=== PATIENT | female | born 1975 ===

== ENCOUNTER 2023-05-30 10:13 | Outpatient (REF) | payer OTHER, SELFPAY ==
--- NOTE | ~2023-05-30 | XR_ITS ---
EXAMINATION: XR KNEE, LEFT CLINICAL INFORMATION: Pain in left knee COMPARISON: Same-day right knee TECHNIQUE: 3 views of the left knee. FINDINGS: No fracture or joint effusion. Alignment is anatomic. Joint spaces are maintained. Small marginal osteophyte extends off the patella. No abnormal soft tissue calcification. XR/XR knee LT 3V IMPRESSION: No acute bony abnormality.
--- NOTE | ~2023-05-30 | XR_ITS ---
EXAMINATION: XR KNEE, RIGHT CLINICAL INFORMATION: Pain in right knee COMPARISON: Same-day left knee TECHNIQUE: 3 views of the right knee. FINDINGS: Small joint effusion. No fracture. Alignment is anatomic. Joint spaces are maintained. On the lateral view, there is question of calcific density projected over the joint space raising concern regarding a loose body within the joint. Quadriceps enthesophyte is noted. XR/XR knee RT 3V IMPRESSION: Question of calcific density projected over the joint space on the lateral view raising concern regarding a loose body within the joint.
== END 2023-05-30 10:14 | disposition home or self-care (01) ==
LOC: HO.HOSX 10:13
PROVIDERS: Visit Provider Orthopaedic Surgery
DX: S83.242A Other tear of medial meniscus, current injury, left knee, initial encounter (principal); M25.561 Pain in right knee
CPT/HCPCS: 73562; 99202

== ENCOUNTER 2023-05-30 12:14 | Outpatient (AMB) | payer OTHER, SELFPAY ==
--- NOTE | 2023-05-30 12:31 | MHC.OFFVIS ---
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 The patient describes her left knee pain as sharp and severe in nature. She did injure her left knee several years ago. She twisted her knee and had acute onset of pain. Since that time her symptoms have gotten worse in spite of continued non operative treatments. She has done physical therapy for 12 weeks over the last 6 months which aggravated her pain. She has also tried Tylenol, Advil and Aleve which gave her minimal relief. She has had injections in the past which gave her only mild relief. The patient states that her left knee will give out several times per day. Allergies No Known Allergies Allergy (Unverified 07/01/20 16:18) Medication List - Last Reconciled 05/30/23 by Demetri Ornelas MD albuterol sulfate mg inhalation clonazepam 1 mg PO BEDTIME PRN montelukast 10 mg PO DAILY omeprazole 40 mg PO DAILY sumatriptan succinate mg PO zolpidem 10 mg PO BEDTIME [facility]N [facility] Surgical History (Updated 05/30/23 @ 12:40 by Irina Mantilla CMA) History of hand surgery Social History (Updated 05/30/23 @ 12:40 by Irina Mantilla CMA) Patient Tobacco Use Status: Former Tobacco user Cigarettes Per Day: 1 Current occupational status: employed Physical Exam Vital Signs: BMI result Body Mass Index 33.9 Const Other: Well-nourished well-developed very friendly female awake alert and oriented x3 in no acute distress Extrem Other: Bilateral lower extremity examination shows good capillary refill, no skin lesions noted, normal sensation light touch Bilateral knee examination shows a minimal effusion, minimal crepitus with range of motion, tenderness along her medial joint line, positive Lavonne's test, no instability Results Reviewed Results Reviewed: X-rays of the patient's bilateral knee show mild diffuse joint space narrowing, no acute bony abnormalities Assessment & Plan Assessment & Plan (1) Tear of medial meniscus of left knee: Code(s): S83.242A - Other tear of medial meniscus, current injury, left knee, initial encounter Plan Ms. Chinchilla presents with progressively worsening bilateral knee pains and mechanical symptoms, left greater than right, most likely due to medial meniscus tearing. Thus, I will send the patient for an MRI of her left knee for further evaluation. I will see her back once the MRI is completed to discuss the findings and treatment options. Feel free to call me at any time should questions regarding her orthopedic management arise. Thank you very much for asking me to see this very friendly patient. I spent 22 minutes in reviewing the patient's records and imaging studies, seeing the patient and documenting in the medical record. Orders: Orders XR knee LT 3V Today M25.562 - Pain in left knee XR knee RT 3V Today M25.561 - Pain in right knee MR knee LT wo con Today S83.242A - Other tear of medial meniscus, current injury, left knee, initial encounter Medications: New meloxicam 15 mg PO DAILY 30 tabs 2RF Coding Level of Care Code New Pt Level 2 (03633) Diagnoses Tear of medial meniscus of left knee S83.242A
[2023-05-30 12:38] VITALS: BMI 33.9
== END 2023-05-30 13:11 | disposition home or self-care (01) ==
PROVIDERS: PCP Internal Medicine; Visit Provider Orthopaedic Surgery
DX: S83.242A Other tear of medial meniscus, current injury, left knee, initial encounter (principal)
CPT/HCPCS: 99202

== ENCOUNTER 2023-07-11 14:26 | Outpatient (REF) | payer OTHER, SELFPAY | END 2023-07-11 14:27 | disposition home or self-care (01) | LOC: HO.HOSX 14:26 | PROVIDERS: Visit Provider Orthopaedic Surgery | DX: Z13.89 Encounter for screening for other disorder (principal) ==

== ENCOUNTER 2023-08-21 11:28 | Outpatient (REF) | payer OTHER, SELFPAY ==
--- NOTE | ~2023-08-21 | MR_ITS ---
EXAMINATION: MR KNEE WITHOUT CONTRAST, LEFT CLINICAL INFORMATION: Left knee injury and worsening pain COMPARISON: None available. TECHNIQUE: MRI of the knee without contrast was performed using routine sequences on a high-field scanner. FINDINGS: MENISCUS: The Left medial meniscus is intact. The lateral meniscus is intact. CARTILAGE: Articular cartilage of the femoral condyles and tibial plateaus are intact. LIGAMENTS: The anterior and posterior cruciate ligaments are intact. Tibial and fibular collateral ligaments, iliotibial band, biceps femoris tendon attachment are intact. PATELLA: The Left patellar tendon and patellar articular cartilage are intact. There is mild left knee effusion. BONES: No focal bone lesions with abnormal signal can be seen. MR/MR knee LT wo con IMPRESSION: 1. Mild left knee effusion is present. Otherwise Normal MRI scan of the Left knee. 2. No meniscal tear is seen.
== END 2023-08-21 11:29 | disposition home or self-care (01) ==
LOC: HO.MRI 11:28
PROVIDERS: PCP Internal Medicine; Visit Provider Orthopaedic Surgery
DX: S83.242A Other tear of medial meniscus, current injury, left knee, initial encounter (principal)
CPT/HCPCS: 73721

== ENCOUNTER 2023-12-12 14:01 | Outpatient (AMB) | payer OTHER, SELFPAY ==
--- NOTE | 2023-12-12 14:03 | A.OFFVIS_ITS ---
Intake Intake Visit Reasons: Left knee MRI review Intake Note: Renae is a 48 year old female who presents for a MRI review of her Left knee. Patient reports she is still having a lot pain. She has had cortisone injections in the past which gave her minimal relief. She has also tried Ty lenol and anti-inflammatory medicines which gave her only mild relief. She has done physical therapy exercises which aggravated her pain. She would like to hold off on surgery if at all possible. Allergies No Known Allergies Allergy (Unverified 12/12/23 14:04) Medication List - Last Reconciled 12/12/23 by Demetri Ornelas MD albuterol sulfate mg inhalation clonazepam 1 mg PO BEDTIME PRN meloxicam 15 mg PO DAILY montelukast 10 mg PO DAILY omeprazole 40 mg PO DAILY sumatriptan succinate mg PO tramadol 50 mg PO Q12H PRN zolpidem 10 mg PO BEDTIME PRN PFSH Surgical History History of hand surgery Social History Patient Tobacco Use Status: Former Tobacco user Cigarettes Per Day: 1 Current occupational status: employed Physical Exam Const Other: Well-nourished well-developed very friendly female awake alert and oriented x3 in no acute distress Extrem Other: Bilateral lower extremity examination shows good capillary refill, no skin lesions noted, normal sensation light touch Left knee examination shows a minimal effusion, mild crepitus with range of motion, no joint line tenderness, negative Lavonne's test Results Reviewed Results Reviewed: MRI of the patient's left knee shows mild diffuse degenerative changes, no acute bony abnormalities Assessment & Plan Assessment & Plan (1) Left knee pain: Code(s): M25.562 - Pain in left knee Plan Ms. Chinchilla presents with left knee pain due to early degenerative joint disease. I had a lengthy discussion with the patient regarding the treatment options. She wishes to hold off on surgery for as long as possible. I agree with this plan. She has had cortisone injections in the past which gave her minimal relief. Thus, I will see whether not the patient's insurance company will cover a viscosupplementation injection. I will see her back once the injection is available. Feel free to call me at any time should questions regarding her orthopedic management arise. I spent 22 minutes in reviewing the patient's records and imaging studies, seeing the patient and documenting in the medical record. Coding Level of Care Code Est Pt Level 2 (03369) Diagnoses Left knee pain M25.562
== END 2023-12-12 15:11 | disposition home or self-care (01) ==
PROVIDERS: PCP Internal Medicine; Visit Provider Orthopaedic Surgery
DX: M17.12 Unilateral primary osteoarthritis, left knee (principal)
CPT/HCPCS: 99213

== ENCOUNTER → 2023-12-12 14:01 | Outpatient (BNVA) | payer OTHER, SELFPAY | PROVIDERS: PCP Internal Medicine; Visit Provider Orthopaedic Surgery | DX: M25.562 Pain in left knee (principal) | CPT/HCPCS: 99212 ==

== ENCOUNTER 2024-01-01 15:16 | Outpatient (REF) | payer OTHER, SELFPAY | END 2024-01-01 15:17 | disposition home or self-care (01) | LOC: HO.HOSX 15:16 | PROVIDERS: Visit Provider Orthopaedic Surgery | DX: Z13.89 Encounter for screening for other disorder (principal) ==

== ENCOUNTER 2024-01-02 07:09 | Outpatient (REF) | payer OTHER, SELFPAY ==
--- NOTE | ~2024-01-02 | XR_ITS ---
EXAMINATION: XR SHOULDER, RIGHT CLINICAL INFORMATION: Pain right shoulder COMPARISON: None available. TECHNIQUE: AP external rotation, Grashey, scapular Y, and axillary views of the right shoulder. FINDINGS: The bones and soft tissues are normal. No fracture. Glenohumeral and acromioclavicular alignment is anatomic with normal joint space. No abnormal soft tissue calcifications. XR/XR shoulder RT min 2V IMPRESSION: Normal right shoulder.
== END 2024-01-02 07:10 | disposition home or self-care (01) ==
LOC: HO.HOSX 07:09
PROVIDERS: Visit Provider Orthopaedic Surgery
DX: M25.511 Pain in right shoulder (principal); M54.2 Cervicalgia
CPT/HCPCS: 73030; 99212

== ENCOUNTER 2024-01-02 13:29 | Outpatient (AMB) | payer OTHER, SELFPAY ==
[2024-01-02 13:39] VITALS: BMI 33.9
--- NOTE | 2024-01-02 13:39 | A.OFFVIS_ITS ---
Intake Vital Signs 01/02/24 13:39 Height 5 ft 6 in Weight 210 lb BMI 33.9 Intake Visit Reasons: OV- Lt Knee pain, RT Shoulder eval, Neck pain Intake Note: Renae is a 48 year old female who presents with complaints of progressively worsening neck pain which radiates down to her right hand as well as intermittent pain in her left knee and right shoulder. The patient states that her neck pain is sharp and severe in nature. She has tried Tylenol and anti- inflammatory medicines which gave her minimal relief. She has also tried tramadol which gives her mild relief. The patient has weakness when lifting her right hand above shoulder height. The patient states that she had an EMG of both of her upper extremities which were normal several years ago. The patient has had injections given into her left knee. She states that the injections were done under sedation due to her anxiety. Allergies No Known Allergies Allergy (Verified 01/02/24 13:45) Medication List - Last Reconciled 01/02/24 by Demetri Ornelas MD albuterol sulfate mg inhalation clonazepam 1 mg PO BEDTIME PRN meloxicam 15 mg PO DAILY montelukast 10 mg PO DAILY omeprazole 40 mg PO DAILY sumatriptan succinate mg PO tramadol 50 mg PO Q12H PRN zolpidem 10 mg PO BEDTIME PRN PFSH Surgical History History of hand surgery Social History (Updated 01/02/24 @ 13:45 by Gabriela Coelho CMA) Patient Tobacco Use Status: Former Tobacco user Cigarettes Per Day: 1 Current occupational status: employed Current occupation: Right hand dominate Physical Exam Vital Signs: BMI result Body Mass Index 33.9 Const Other: Well-nourished well-developed very friendly female awake alert and oriented x3 in no acute distress Neck Other: Cervical spine examination shows right-sided paraspinal muscle tenderness, pain with range of motion, positive Spurling's test, 3/5 strength with testing of her right biceps and wrist extensors when compared to 5/5 strength on her left side Extrem Other: Left knee examination shows a minimal effusion, mild crepitus with range of motion, no instability Right shoulder examination shows decreased range of motion when compared to her left shoulder, positive impingement signs, mild tenderness over her acromioclavicular joint Results Reviewed Results Reviewed: MRI of the patient's left knee shows mild diffuse degenerative changes, no meniscus tearing X-rays of the patient's right shoulder show moderate acromioclavicular joint narrowing, a type 2 acromion, no acute bony abnormalities Assessment & Plan Assessment & Plan (1) Neck pain on right side: Code(s): M54.2 - Cervicalgia Plan Ms. Chinchilla presents with progressively worsening neck pain which radiates down to her right hand as well as associated right arm weakness possibly due to cervical stenosis or a disc herniation. Thus, I will arrange for her to have an MRI of her cervical spine for further evaluation. I will see her back once the MRI is completed to discuss the findings and treatment options. The patient may also be a candidate for left knee viscosupplementation injections or further cortisone injections. She states that these injections have been done under sedation in the past. Thus, I will arrange for the patient to have a consultation with Dr. Joaquin to get his opinion regarding her neck and shoulder and knee symptoms as well as possible injections under sedation. Feel free to call me at any time should questions regarding her orthopedic management arise. I spent 22 minutes in reviewing the patient's records and imaging studies, seeing the patient and documenting in the medical record. Orders: Orders MR cervical spine wo con Today M54.2 - Cervicalgia XR shoulder RT min 2V Today M25.511 - Pain in right shoulder Referrals Pain Management Referral M54.2 - Cervicalgia Coding Level of Care Code Est Pt Level 2 (17561) Diagnoses Neck pain on right side M54.2
== END 2024-01-02 13:55 | disposition home or self-care (01) ==
PROVIDERS: PCP Internal Medicine; Visit Provider Orthopaedic Surgery
DX: M54.2 Cervicalgia (principal)
CPT/HCPCS: 99213

== ENCOUNTER 2024-04-03 09:29 | Outpatient (AMB) | payer OTHER, SELFPAY ==
--- NOTE | 2024-04-03 09:33 | MHC.OFFVIS ---
Vital Signs 04/03/24 09:44 Height 5 ft 6 in Weight 210 lb BMI 33.9 Handedness Right Intake Visit Reasons: OV - Right Shoulder / neck pain Intake Note: Renae is a 48 year old female who presents with complaints of progressively worsening neck pain which radiates down to her right hand as well as intermittent pain in her left knee and right shoulder. The patient states that her neck pain is sharp and severe in nature. She has tried Tylenol and anti-inflammatory medicines which gave her minimal relief. She has also tried tramadol which gives her mild relief. The patient has weakness when lifting her right hand above shoulder height. The patient states that she had an EMG of both of her upper extremities which were normal several years ago. The patient has had injections given into her left knee. She states that the injections were done under sedation due to her anxiety. The patient states that she did have an MRI of her cervical spine scheduled but she was not able to get transportation. Allergies No Known Allergies Allergy (Verified 04/03/24 09:46) [facility] Surgical History History of hand surgery Social History Patient Tobacco Use Status: Former Tobacco user Cigarettes Per Day: 1 Current occupational status: employed Current occupation: Right hand dominate Physical Exam Vital Signs: BMI result Body Mass Index 33.9 Const Other: Well-nourished well-developed very friendly female awake alert and oriented x3 in no acute distress Neck Other: Cervical spine examination shows pain with range of motion, tenderness along her right-sided paraspinal muscles, positive Spurling's test 4/5 strength with testing of her right biceps and wrist extensors when compared to 5/5 strength on her left side Results Reviewed Results Reviewed: X-rays of the patient's cervical spine taken today show diffuse moderate degenerative disc disease, no acute bony abnormalities Assessment & Plan Assessment & Plan (1) Neck pain on right side: Code(s): M54.2 - Cervicalgia Category: Medical Plan Ms. Chinchilla presents with progressively worsening cervical spine pain which radiates into her right arm as well as associated right arm weakness most likely due to cervical stenosis or a disc herniation. Thus, I did reorder her cervical spine MRI. I will contact her by phone once the MRI results are available. She will call me prior to that time should her symptoms worsen in any way. Feel free to call me at any time should questions regarding her orthopedic management arise. I spent 22 minutes in reviewing the patient's records and imaging studies, seeing the patient and documenting in the medical record. Orders: Orders XR cervical spine 2V Today M54.2 - Cervicalgia MR cervical spine wo con Today M54.2 - Cervicalgia Coding Level of Care Code Est Pt Level 3 (42801) Diagnoses Neck pain on right side M54.2
[2024-04-03 09:44] VITALS: BMI 33.9
== END 2024-04-03 09:56 | disposition home or self-care (01) ==
PROVIDERS: PCP Internal Medicine; Visit Provider Orthopaedic Surgery
DX: M54.2 Cervicalgia (principal); M25.511 Pain in right shoulder; M25.562 Pain in left knee
CPT/HCPCS: 99213

== ENCOUNTER 2024-04-03 12:06 | Outpatient (REF) | payer OTHER, SELFPAY ==
--- NOTE | ~2024-04-03 | XR_ITS ---
EXAMINATION: XR CERVICAL SPINE CLINICAL INFORMATION: Neck pain. COMPARISON: None available. TECHNIQUE: 4 views of the cervical spine. FINDINGS: Straightening of the normal cervical lordosis. Degenerative changes between the anterior arch of C1 and the odontoid. Limited visualization of C6 and C7 due to overlying soft tissues. Moderate multilevel cervical spondylosis with multilevel hypertrophic change and loss of disc space height at C5-C6 and C6-C7. XR/XR cervical spine 2V IMPRESSION: Moderate multilevel cervical spondylosis most notable at C5-C6 and C6-C7.
== END 2024-04-03 12:07 | disposition home or self-care (01) ==
LOC: HO.HOSX 12:06
PROVIDERS: Visit Provider Orthopaedic Surgery
DX: M54.2 Cervicalgia (principal); M25.511 Pain in right shoulder
CPT/HCPCS: 72040; 99212

== ENCOUNTER 2024-04-11 10:55 | Outpatient (AMB) | payer OTHER, SELFPAY ==
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
[2024-04-11 11:03] VITALS: BP 157/82; PULSE 78; O2SAT 97; BMI 33.9
== END 2024-04-11 11:38 | disposition home or self-care (01) ==
PROVIDERS: PCP Internal Medicine; Visit Provider Nurse Practitioner Family
DX: M62.838 Other muscle spasm (principal); M25.511 Pain in right shoulder; M47.812 Spondylosis without myelopathy or radiculopathy, cervical region; M54.12 Radiculopathy, cervical region
CPT/HCPCS: 99204

== ENCOUNTER → 2024-04-11 10:55 | Outpatient (BNVA) | payer OTHER, SELFPAY | PROVIDERS: PCP Internal Medicine; Visit Provider Nurse Practitioner Family | DX: M54.2 Cervicalgia (principal); M62.838 Other muscle spasm; M25.511 Pain in right shoulder; M47.812 Spondylosis without myelopathy or radiculopathy, cervical region; M54.12 Radiculopathy, cervical region | CPT/HCPCS: 99202 ==